=== PATIENT | female | born 1960 | race Caucasian/White ===

== ENCOUNTER 2025-03-09 14:25 | Inpatient (IN) | payer MEDICARE, OTHER ==
[~2025-03-09] VITALS: Ht 160 cm; Wt 69.0 kg
[~2025-03-09 14:25] MED LIST: APIX5TAB PO; ATOR40TA28 PO; CEPH-558 PO; FERR325T27 PO; LEVE-71 PO; LOSA-381 PO; METO25 PO; PYRI-9 PO; TRAZ-257 PO; [UNRECOGNIZED DRUG - CODE] PO
[2025-03-09 15:26] LABS: BASOPHILS % (AUTO) 0.4 % (0.0-2.0); EOSINOPHILS % (AUTO) 0 % (1.0-6.0); HEMATOCRIT 35.8 % (36-46); HEMOGLOBIN 11.8 g/dL (12.0-16.0); LYMPHOCYTES # (AUTO) 2.4 K/uL (1.0-4.8); LYMPHOCYTES % (AUTO) 18.8 % (22.0-44.0); MEAN CORPUSCULAR HEMOGLOBIN 28.4 pg (26.0-34.0); MEAN CORPUSCULAR HGB CONC 33.1 G/dL (31.0-37.0); MEAN CORPUSCULAR VOLUME 86 fL (80-100); MONOCYTES # (AUTO) 0.8 K/uL (0.1-1.0); MONOCYTES % (AUTO) 6.6 % (2.0-9.0); NEUTROPHILS # (AUTO) 9.6 K/uL (1.8-7.7); NEUTROPHILS % (AUTO) 74.2 % (40.0-70.0); RED BLOOD CELL COUNT(AUTO) 4.17 MIL/uL (4.00-5.20); RED CELL DISTRIBUTION WIDTH 16.6 % (11.5-14.5); WHITE BLOOD COUNT (AUTO) 12.9 K/uL (4.5-11.0)
[2025-03-09 15:36] LABS: ANION GAP 7 mmol/L (8-16); CALCIUM, TOTAL 8.5 mg/dL (8.8-10.5); CARBON DIOXIDE 26 mmol/L (22-29); CHLORIDE 102 mmol/L (98-107); CREATININE 1.76 mg/dL (0.60-1.30); GLOMERULAR FILTR. RATE CALC 29 mL/min (>60); GLUCOSE,RANDOM 122 mg/dL (70-110); POTASSIUM 3.8 mmol/L (3.5-5.1); SODIUM SERUM 135 mmol/L (136-145); UREA NITROGEN, BLOOD 20 mg/dL (7-18)
[2025-03-09 15:42] LABS: ALANINE AMINOTRANSFERASE 96 U/L (12-78); ALKALINE PHOSPHATASE 128 U/L (46-116); ASPARTATE AMINOTRANSFERASE 116 U/L (15-37); BILIRUBIN,TOTAL 6.7 mg/dL (0.1-1.0); LIPASE 58 U/L (16-77); TOTAL PROTEIN, SERUM 8.3 g/dL (6.4-8.2)
[2025-03-09 15:43] LABS: ALCOHOL, BLOOD (SERUM) < 3 mg/dL (0-10); PLATELET COUNT (AUTO) 98 K/uL (150-450); PLATELET MORPHOLOGY COMMENT LARGE PLTS PRESENT; RBC MORPHOLOGY COMMENT NORMAL RBC MORPH
[2025-03-09 15:46] LABS: B-TYPE NATRIURETIC PEPTIDE 13 pg/mL (0-100)
[2025-03-09 15:49] LABS: LACTIC ACID 3.8 mmol/L (0.4-2.0)
[2025-03-09 15:55] LABS: TROPONIN I-HIGH SENSITIVITY 91 ng/L (<51)
[2025-03-09] MEDS ORDERED: 0.9% SODIUM CHLORIDE 10 ML SYRINGE IVP PRN (16:15)
[2025-03-09] MEDS ORDERED: ONDANSETRON HCL 4 MG/2 ML VIAL IVP PRN (16:15)
[2025-03-09] MEDS: SODIUM CHLORIDE 0.9% 2,450 ML IV ONE (16:27)
[2025-03-09] MEDS: LACTULOSE 20 GM/30 ML SOLUTION UDCUP PO ONE (16:38)
[2025-03-09] MEDS: SODIUM CHLORIDE 0.9% 1,000 ML IV ONE (16:42)
[2025-03-09] MEDS: CefTRIAXone 1 GM/DEXTROSE 50 ML IV ONE (16:46)
[2025-03-09 16:57] LABS: APPEARANCE,URINE HAZY (CLEAR); COLOR,URINE ORANGE (YELLOW); GLUCOSE, URINE (UA) NEGATIVE (NEGATIVE); KETONES,URINE NEGATIVE (NEGATIVE); LEUKOCYTE ESTERASE ,URINE LARGE (NEGATIVE); NITRATE,URINE NEGATIVE (NEGATIVE); OCCULT BLOOD,URINE SMALL (NEGATIVE); PROTEIN,URINE 30-70 mg/dL (NEGATIVE); SPECIFIC GRAVITIY, URINE 1.022 (1.003-1.030)
[2025-03-09 17:01] LABS: CALCIUM, TOTAL 8.4 mg/dL (8.8-10.5); CREATININE 1.55 mg/dL (0.60-1.30); POTASSIUM 3.4 mmol/L (3.5-5.1)
[2025-03-09 17:02] LABS: PROTHROMBIN TIME 24.5 SEC (9.4-11.6)
[2025-03-09 17:02] LABS: BILIRUBIN,URINE SMALL (NEGATIVE)
[2025-03-09 17:04] LABS: ALCOHOL, URINE DRUG SCREEN NEGATIVE (NEGATIVE); AMPHET/METH SCREEN,URINE NEGATIVE (NEGATIVE); BARBITURATE SCREEN, URINE NEGATIVE (NEGATIVE); BENZODIAZEPINES SCREEN,URINE NEGATIVE (NEGATIVE); CANNABINOID SCREEN,URINE POSITIVE (NEGATIVE); COCAINE SCREEN,URINE NEGATIVE (NEGATIVE); METHADONE SCREEN, URINE NEGATIVE (NEGATIVE); OPIATE SCREEN,URINE NEGATIVE (NEGATIVE); PHENCYCLIDINE SCREEN,URINE NEGATIVE (NEGATIVE)
[2025-03-09 17:05] LABS: ALBUMIN 1.9 g/dL (3.4-5.0); BILIRUBIN,TOTAL 6.4 mg/dL (0.1-1.0); TOTAL PROTEIN, SERUM 7.8 g/dL (6.4-8.2)
[2025-03-09 17:12] LABS: WBC,URINE 51-100 /HPF (0-5)
[2025-03-09 17:13] LABS: BACTERIA,URINE Many /HPF (None Seen)
[2025-03-09] MEDS: LACTULOSE 200 GM/300 ML RECTAL SOLUTION PR ONE (18:09)
[2025-03-09] MEDS: DOCUSATE SODIUM 100 MG CAPSULE PO SCH (20:08)
[2025-03-09 20:34] LABS: TROPONIN I-HIGH SENSITIVITY 67 ng/L (<51)
[2025-03-09 22:32] LABS: % IRON SATURATION 46.6 % (22-44)
[2025-03-10 02:38] VITALS: BP 122/64; PULSE 78; RESP 18; TEMP 98.2; O2SAT 99
[2025-03-10 03:59] VITALS: BP 146/51; PULSE 60; RESP 18; TEMP 98.2; O2SAT 95
[2025-03-10] MEDS: LEVOTHYROXINE SODIUM 100 MCG TABLET PO SCH (06:14)
[2025-03-10 07:12] LABS: BASOPHILS % (AUTO) 0.2 % (0.0-2.0); EOSINOPHILS % (AUTO) 0 % (1.0-6.0); HEMATOCRIT 34.2 % (36-46); HEMOGLOBIN 11.5 g/dL (12.0-16.0); LYMPHOCYTES # (AUTO) 2.2 K/uL (1.0-4.8); LYMPHOCYTES % (AUTO) 18.5 % (22.0-44.0); MEAN CORPUSCULAR HEMOGLOBIN 28.7 pg (26.0-34.0); MEAN CORPUSCULAR HGB CONC 33.8 G/dL (31.0-37.0); MEAN CORPUSCULAR VOLUME 85 fL (80-100); MONOCYTES # (AUTO) 0.9 K/uL (0.1-1.0); MONOCYTES % (AUTO) 7.9 % (2.0-9.0); NEUTROPHILS # (AUTO) 8.8 K/uL (1.8-7.7); NEUTROPHILS % (AUTO) 73.4 % (40.0-70.0); PLATELET COUNT (AUTO) 135 K/uL (150-450); RED BLOOD CELL COUNT(AUTO) 4.01 MIL/uL (4.00-5.20); RED CELL DISTRIBUTION WIDTH 16.1 % (11.5-14.5)
[2025-03-10 08:00] VITALS: BP 124/65; PULSE 82; RESP 16; TEMP 98.2; O2SAT 98
[2025-03-10] MEDS: APIXABAN 5 MG TABLET PO SCH (08:46)
[2025-03-10] MEDS: FERROUS SULFATE 325 MG EC TABLET PO SCH (08:46)
[2025-03-10] MEDS: METOPROLOL TARTRATE 25 MG TABLET PO SCH (08:47)
[2025-03-10] MEDS: LevETIRAcetam 500 MG TABLET PO SCH (08:47)
[2025-03-10] MEDS: PYRIDOXINE HCL 50 MG TABLET PO SCH (08:53)
[2025-03-10] MEDS: POTASSIUM CHLORIDE 20 MEQ ER TABLET PO ONE (09:32)
[2025-03-10 12:00] VITALS: BP 110/65; PULSE 56; RESP 15; TEMP 98.2; O2SAT 96
[2025-03-10 16:00] VITALS: BP 102/54; PULSE 68; RESP 16; TEMP 98.5; O2SAT 95
[2025-03-10] MEDS: LACTULOSE 20 GM/30 ML SOLUTION UDCUP PO SCH (16:00)
[2025-03-10 20:00] VITALS: BP 110/48; PULSE 62; RESP 17; TEMP 98.1; O2SAT 95
[2025-03-11] MEDS ORDERED: HEPARIN SODIUM,PORCINE 5,000 UNITS/ML VIAL SQ SCH
[2025-03-11 00:19] VITALS: BP 100/56; PULSE 58; RESP 17; TEMP 98.2; O2SAT 96
[2025-03-11 04:05] VITALS: BP 108/52; PULSE 59; RESP 18; TEMP 97.5; O2SAT 94
[2025-03-11 07:37] LABS: BASOPHILS % (AUTO) 0.9 % (0.0-2.0); EOSINOPHILS % (AUTO) 0.1 % (1.0-6.0); HEMATOCRIT 33.9 % (36-46); HEMOGLOBIN 11.4 g/dL (12.0-16.0); LYMPHOCYTES # (AUTO) 2.1 K/uL (1.0-4.8); MEAN CORPUSCULAR HEMOGLOBIN 29.6 pg (26.0-34.0); MEAN CORPUSCULAR HGB CONC 33.7 G/dL (31.0-37.0); MEAN CORPUSCULAR VOLUME 88 fL (80-100); MONOCYTES # (AUTO) 0.6 K/uL (0.1-1.0); MONOCYTES % (AUTO) 6.7 % (2.0-9.0); NEUTROPHILS # (AUTO) 6.1 K/uL (1.8-7.7); NEUTROPHILS % (AUTO) 68.3 % (40.0-70.0); PLATELET COUNT (AUTO) 108 K/uL (150-450); RED BLOOD CELL COUNT(AUTO) 3.85 MIL/uL (4.00-5.20); RED CELL DISTRIBUTION WIDTH 17.2 % (11.5-14.5); WHITE BLOOD COUNT (AUTO) 8.9 K/uL (4.5-11.0)
[2025-03-11 07:51] VITALS: BP 111/59; PULSE 64; RESP 18; TEMP 97.9; O2SAT 97
[2025-03-11] MEDS: PIPERACILLIN SODIUM/TAZOBACTAM 2.25 GM in DEXTROSE 5%-WATER 50 ML IV SCH (08:00)
[2025-03-11 08:04] LABS: CALCIUM, TOTAL 8.1 mg/dL (8.8-10.5); CREATININE 1.1 mg/dL (0.60-1.30); POTASSIUM 3.1 mmol/L (3.5-5.1)
[2025-03-11 08:17] VITALS: BP 111/59; PULSE 64; RESP 18; TEMP 97.9; O2SAT 97
[2025-03-11] MEDS ORDERED: MEBROFENIN TC99M/MCL ISOTOPE 1 EA INJ INJ ONE (10:00)
[2025-03-11] MEDS: PIPERACILLIN/TAZO 3.375 GM/D5W 50 ML IV SCH (11:18)
[2025-03-11] MEDS ORDERED: POTASSIUM CHL 10 MEQ/WATER 50 ML IV PRN (13:15)
[2025-03-11] MEDS ORDERED: METO-408 PO (13:25)
[2025-03-11] MEDS: POTASSIUM CHLORIDE 20 MEQ ER TABLET PO PRN (13:58)
[2025-03-11 16:21] VITALS: BP 109/61; PULSE 50; RESP 18; TEMP 97.5; O2SAT 100
[2025-03-11] MEDS ORDERED: GADOTERATE MEGLUMINE 10 MMOL/20 ML VIAL IVP ONE (17:01)
[2025-03-11 20:00] VITALS: BP 106/63; PULSE 61; RESP 18; TEMP 97.7; O2SAT 100
[2025-03-11] MEDS: PANTOPRAZOLE SODIUM 40 MG/VIAL IVP SCH (20:22)
[2025-03-12] MEDS: PROPRANOLOL HCL 10 MG TABLET PO SCH (09:00)
[2025-03-12 16:20] VITALS: BP 104/55; PULSE 59; RESP 18; TEMP 97.7; O2SAT 98
[2025-03-12] MEDS ORDERED: 0.9% SODIUM CHLORIDE 10 ML SYRINGE IVP ONE (17:08)
[2025-03-12] MEDS ORDERED: IOHEXOL 350 MG/ML 100 ML VIAL ONE (17:08)
[2025-03-12] MEDS ORDERED: SODIUM CHLORIDE 0.9% 0 ML ONE (17:08)
[2025-03-12] MEDS: POTASSIUM CHLORIDE 20 MEQ ER TABLET PO ONE (18:51)
[2025-03-12 20:25] VITALS: BP 107/55; PULSE 58; RESP 18; TEMP 97.7; O2SAT 98
[2025-03-12] MEDS: LACTULOSE 20 GM/30 ML SOLUTION UDCUP PO SCH (20:28)
[2025-03-12] MEDS: RIFAXIMIN 550 MG TABLET PO SCH (20:29)
[2025-03-13 04:10] VITALS: BP 137/63; PULSE 58; RESP 18; TEMP 97.5; O2SAT 96
[2025-03-13] MEDS ORDERED: SODIUM CHLORIDE 0.9% 500 ML IV ONE (08:08)
[2025-03-13 08:15] VITALS: BP 110/50; PULSE 59; RESP 18; TEMP 97.5; O2SAT 98
[2025-03-13 09:44] LABS: CALCIUM, TOTAL 8.3 mg/dL (8.8-10.5); CREATININE 1.27 mg/dL (0.60-1.30); POTASSIUM 3.8 mmol/L (3.5-5.1)
[2025-03-13 16:46] VITALS: BP 122/62; PULSE 68; RESP 18; TEMP 97.9; O2SAT 97
[2025-03-13] MEDS ORDERED: LACT10SO85 PO (17:57)
[2025-03-13] MEDS ORDERED: PANT-31 PO ×2 (17:59→18:00)
[2025-03-13] MEDS ORDERED: CEPH-558 PO (18:01)
[2025-03-13] MEDS ORDERED: PROP10TA73 PO (18:03)
[2025-03-13] MEDS ORDERED: RIFAX550 PO (18:04)
[2025-03-13 19:55] VITALS: BP 116/58; PULSE 59; RESP 18; TEMP 98.1; O2SAT 100
== END 2025-03-13 20:50 | DRG 441 ==
LOC: EMS 14:25 → EDH 16:13 → 5S 03-10 01:30 → 4E 03-11 03:33
PROVIDERS: ADMIT Internal Medicine; ATTEND Internal Medicine
DX: K76.82 Hepatic encephalopathy (principal); G93.41 Metabolic encephalopathy; R65.11 Systemic inflammatory response syndrome (SIRS) of non-infectious origin with acute organ dysfunction; N17.9 Acute kidney failure, unspecified; E87.20 Acidosis, unspecified; N39.0 Urinary tract infection, site not specified; D68.9 Coagulation defect, unspecified; E44.0 Moderate protein-calorie malnutrition; I10 Essential (primary) hypertension; D64.9 Anemia, unspecified; K74.60 Unspecified cirrhosis of liver; E78.5 Hyperlipidemia, unspecified; E03.9 Hypothyroidism, unspecified; E83.42 Hypomagnesemia; F41.9 Anxiety disorder, unspecified; D69.6 Thrombocytopenia, unspecified; G40.909 Epilepsy, unspecified, not intractable, without status epilepticus; Z79.01 Long term (current) use of anticoagulants; Z86.711 Personal history of pulmonary embolism; Z86.73 Personal history of transient ischemic attack (TIA), and cerebral infarction without residual deficits; Z88.2 Allergy status to sulfonamides; Z68.26 Body mass index [BMI] 26.0-26.9, adult; Z79.899 Other long term (current) drug therapy; I25.2 Old myocardial infarction
CPT/HCPCS: 51701; 70450; 70553; 71045; 72125; 76705; 78226; 80048; 80053; 80076; 80307; 81001; 82140; 82271; 83010; 83540; 83550; 83605; 83615; 83690; 83735; 83880; 84132; 84145; 84484; 85025; 85045; 85610; 85730; 86880; 87040; 87077; 87081; 87086; 87186; 93005; 93970; 97110; 97116; 97163; 97530; 99285; A9537; G0378; G0480; G0481; J0696; J2470; J2543; J7040; J7050; J7060; 36415-L1; 36415-TC